=== PATIENT | female | born 1995 | race Asian ===

== ENCOUNTER 2023-07-14 03:13 | Emergency (ER) | payer OTHER ==
[~2023-07-14] VITALS: Ht 162.6 cm; Wt 72.6 kg
[2023-07-14 03:31] VITALS: BP_SYST 143; PULSE 77; RESP 20; TEMP 98.9; O2SAT 97
[2023-07-14] MEDS ORDERED: AUG875 PO (03:34)
== END 2023-07-14 03:31 | disposition home or self-care (01) ==
LOC: SED 03:13
DX: J06.9 Acute upper respiratory infection, unspecified (principal); J02.9 Acute pharyngitis, unspecified; R09.81 Nasal congestion; R50.9 Fever, unspecified; Z79.899 Other long term (current) drug therapy
CPT/HCPCS: 99283

== ENCOUNTER 2023-07-15 21:30 | Emergency (ER) | payer OTHER, BC ==
[~2023-07-15] VITALS: Ht 162.6 cm; Wt 72.6 kg
[~2023-07-15 21:30] MED LIST: AUG875 PO
[2023-07-15 22:27] VITALS: BP_SYST 133; PULSE 91; RESP 19; TEMP 99.5; O2SAT 96
[2023-07-16] MEDS ORDERED: ACETAMINOPHEN 325 MG TABLET PO ONE ×2 (00:30)
[2023-07-16 00:50] LABS: BILIRUBIN,URINE NEGATIVE (NEGATIVE); CLARITY/URINE Clear (CLEAR); COLOR,URINE YELLOW (YELLOW); GLUCOSE,URINE NEGATIVE (NEGATIVE); KETONES,URINE NEGATIVE (NEGATIVE); LEUKOCYTE ESTERASE ,URINE NEGATIVE (NEGATIVE); NITRITE, URINE NEGATIVE (NEGATIVE); PROTEIN URINE NEGATIVE (NEGATIVE); UROBILINOGEN,URINE 0.2 (0.2-1.0)
[2023-07-16 00:51] LABS: BLOOD, URINE TRACE (NEGATIVE)
[2023-07-16 00:59] LABS: STREPTOCOCCUS A SCREEN (RAPID) NEGATIVE (NEGATIVE)
[2023-07-16 01:02] LABS: COVID19 ANTIGEN SOFIA FIA NEGATIVE (NEGATIVE)
[2023-07-16 01:20] LABS: BACTERIA,URINE None Seen /HPF (None Seen)
[2023-07-16] MEDS ORDERED: HYDR-3927 PO (01:51)
[2023-07-16 02:20] VITALS: BP_SYST 130; PULSE 85; RESP 19; TEMP 98.6; O2SAT 96
== END 2023-07-16 02:13 | disposition home or self-care (01) ==
LOC: SED 21:30
DX: J01.90 Acute sinusitis, unspecified (principal); R05.9 Cough, unspecified; R51.9 Headache, unspecified; J45.909 Unspecified asthma, uncomplicated; Z79.899 Other long term (current) drug therapy; Z20.822 Contact with and (suspected) exposure to COVID-19
CPT/HCPCS: 36415; 71045; 81000; 81025; 86403; 87081; 99284